=== PATIENT | female | born 1990 | race Caucasian/White ===

== ENCOUNTER 2021-04-22 07:00 | Outpatient (REF) | payer OTHER, SELFPAY ==
[2021-04-22 07:52] LABS: MANUAL DIFF FLAG NO
[2021-04-22 07:54] LABS: Basophils Percent Auto 0.3 % (0-2); Eosinophils Absolute Auto 0.1 X10*3/uL (0.0-0.4); Eosinophils Percent Auto 1.7 % (0-4); Hematocrit 42.4 % (37-47); Hemoglobin 14.8 g/dl (12.0-16.0); Imm Gran Abs Auto 0.01 X10*3/uL (0.00-0.03); Imm Gran Pct Auto 0.1 % (0.0-0.4); Lymphocytes Absolute Auto 2.5 X10*3/uL (1.2-4.9); Lymphocytes Percent Auto 34.5 % (20-40); Mean Corpuscular HGB Conc 34.9 g/dl (31.0-35.0); Mean Corpuscular Hemoglobin 31.6 pg (27.0-33.0); Mean Corpuscular Volume 90.6 fL (80-98); Mean Platelet Volume 9.4 fL (9.4-12.3); Monocytes Absolute Auto 0.5 X10*3/uL (0.1-1.2); Monocytes Percent Auto 7.1 % (2-11); Neutrophils Absolute Auto 4.1 X10*3/uL (2.0-8.3); Neutrophils Percent Auto 56.3 % (45-73); Platelet Count 238 X10*3/uL (160-400); Red Blood Count 4.68 X10*6/uL (4.20-5.50); Red Cell Distribution Width 12.1 % (11.0-16.0); White Blood Count 7.2 X10*3/uL (4.8-10.8)
[2021-04-22 08:21] LABS: Alanine Aminotransferase 18 U/L (0-31); Albumin Level 4.2 g/dL (3.5-5.0); Alkaline Phosphatase 71 U/L (39-117); Anion Gap 12 (12-20); Aspartate Amino Transferase 13 U/L (5-31); Bilirubin Total 0.6 mg/dL (0.0-1.0); Blood Urea Nitrogen 8 mg/dL (9-16); Carbon Dioxide 23 mmol/L (22-29); Chloride 110 mmol/L (96-108); Cholesterol 174 mg/dL; Estimated Glomerular Filt Rate > 60; Glucose Fasting 102 mg/dL (60-99); HDL Cholesterol 56 mg/dL; LDL Cholesterol Calculated 94 mg/dl; Potassium 3.9 mmol/L (3.3-5.1); Sodium 141 mmol/L (135-145); Total Protein 6.8 g/dL (6.5-8.0); Triglycerides 121 mg/dL
[2021-04-22 08:44] LABS: Thyroid Stimulating Hormone 1.94 uIU/mL (0.32-4.0); Vitamin D 25-OH Total 27.1 ng/mL (>30)
[2021-04-23 22:26] LABS: Thyroid Peroxidase Antibodies 1 IU/mL (<9)
== END 2021-04-22 07:01 | disposition home or self-care (01) ==
LOC: HO.LAB 07:00
PROVIDERS: PCP Internal Medicine; Visit Provider Internal Medicine
DX: Z00.00 Encounter for general adult medical examination without abnormal findings (principal); E55.9 Vitamin D deficiency, unspecified; E28.2 Polycystic ovarian syndrome; E04.9 Nontoxic goiter, unspecified; I45.6 Pre-excitation syndrome
CPT/HCPCS: 36415; 80053; 80061; 82306; 84439; 84443; 85025; 86376

== ENCOUNTER 2021-04-29 16:24 | Outpatient (REF) | payer OTHER, SELFPAY ==
--- NOTE | ~2021-04-29 | US_ITS ---
EXAMINATION: US THYROID CLINICAL INFORMATION: Enlarged thyroid. COMPARISON: None TECHNIQUE: Linear transducer grayscale and color Doppler examination with attention to the region of the thyroid. FINDINGS: SIZE: Measurements of the thyroid lobes and nodules are given in sagittal, anteroposterior and transverse dimensions respectively. The thyroid gland is normal in size. Right Thyroid Lobe: 3.7 x 1.3 x 1.6 cm, volume 4.0 mL. Parenchyma: The gland echotexture is homogeneous. Thyroid vascularity is normal. Left Thyroid Lobe: 3.9 x 1.2 x 1.2 cm, volume 3.0 mL. Parenchyma: The gland echotexture is homogeneous. Thyroid vascularity is normal. Isthmus: 0.3 cm in maximum AP dimension. No thyroid nodules are seen. No lymphadenopathy is seen in the tissue surrounding the thyroid gland. US/US thyroid IMPRESSION: Normal thyroid ultrasound.
== END 2021-04-29 16:25 | disposition home or self-care (01) ==
LOC: HO.US 16:24
PROVIDERS: PCP Internal Medicine; Visit Provider Internal Medicine
DX: E04.9 Nontoxic goiter, unspecified (principal)
CPT/HCPCS: 76536

== ENCOUNTER 2021-12-18 10:51 | Outpatient (REF) | payer OTHER, SELFPAY ==
[2021-12-18 13:59] LABS: Estimated Average Glucose 85 mg/dL; Hemoglobin A1c % 4.6 %
[2021-12-18 14:08] LABS: Anion Gap 13 (12-20); Blood Urea Nitrogen 8 mg/dL (9-16); Calcium 9.4 mg/dL (8.4-10.2); Carbon Dioxide 24 mmol/L (22-29); Chloride 107 mmol/L (96-108); Estimated Glomerular Filt Rate > 60; Glucose Random 93 mg/dL (60-115); Potassium 4.1 mmol/L (3.3-5.1); Sodium 140 mmol/L (135-145)
[2021-12-18 14:31] LABS: Free T4 (Free Thyroxine) 0.68 ng/dL (0.71-1.85); Thyroid Stimulating Hormone 1.01 uIU/mL (0.32-4.0); Vitamin D 25-OH Total 25.3 ng/mL (>30)
== END 2021-12-18 10:52 | disposition home or self-care (01) ==
LOC: HO.10HDL 10:51
PROVIDERS: Visit Provider Internal Medicine
DX: E28.2 Polycystic ovarian syndrome (principal); E55.9 Vitamin D deficiency, unspecified
CPT/HCPCS: 36415; 80048; 82306; 83036; 84439; 84443

== ENCOUNTER 2022-12-24 08:01 | Outpatient (REF) | payer OTHER, SELFPAY ==
[2022-12-24 10:55] LABS: MANUAL DIFF FLAG NO
[2022-12-24 11:02] LABS: Basophils Percent Auto 0.3 % (0-2); Eosinophils Absolute Auto 0.1 X10*3/uL (0.0-0.4); Eosinophils Percent Auto 1.6 % (0-4); Hematocrit 42.2 % (37.0-47.0); Hemoglobin 14.6 g/dl (12.0-16.0); Imm Gran Abs Auto 0.02 X10*3/uL (0.00-0.03); Imm Gran Pct Auto 0.3 % (0.0-0.4); Lymphocytes Absolute Auto 2.2 X10*3/uL (1.2-4.9); Lymphocytes Percent Auto 28.3 % (20-40); Mean Corpuscular HGB Conc 34.6 g/dl (31.0-35.0); Mean Corpuscular Volume 89.6 fL (80.0-98.0); Monocytes Absolute Auto 0.5 X10*3/uL (0.1-1.2); Monocytes Percent Auto 6.3 % (2-11); Neutrophils Absolute Auto 4.8 x10*3/uL (2.0-8.3); Neutrophils Percent Auto 63.2 % (45-73); Platelet Count 265 X10*3/uL (160-400); Red Blood Count 4.71 X10*6/uL (4.20-5.50); Red Cell Distribution Width 12.1 % (11.0-16.0); White Blood Count 7.6 X10*3/uL (4.8-10.8)
[2022-12-24 11:41] LABS: Alanine Aminotransferase 19 U/L (0-31); Albumin Level 3.9 g/dL (3.5-5.0); Alkaline Phosphatase 88 U/L (39-117); Anion Gap 14 (12-20); Aspartate Amino Transferase 14 U/L (5-31); Bilirubin Total 0.5 mg/dL (0.0-1.0); Blood Urea Nitrogen 11 mg/dL (9-16); Calcium 8.8 mg/dL (8.4-10.2); Carbon Dioxide 24 mmol/L (22-29); Chloride 107 mmol/L (96-108); Cholesterol 162 mg/dL; Estimated Glomerular Filt Rate > 60; Glucose Fasting 95 mg/dL (60-99); HDL Cholesterol 45 mg/dL; LDL Cholesterol Calculated 94 mg/dl; Potassium 4.1 mmol/L (3.3-5.1); Sodium 141 mmol/L (135-145); Total Protein 6.3 g/dL (6.5-8.0); Triglycerides 118 mg/dL
[2022-12-24 12:01] LABS: Thyroid Stimulating Hormone 1.07 uIU/mL (0.32-4.0)
== END 2022-12-24 08:02 | disposition home or self-care (01) ==
LOC: HO.10HDL 08:01
PROVIDERS: Visit Provider Internal Medicine
DX: Z00.00 Encounter for general adult medical examination without abnormal findings (principal)
CPT/HCPCS: 36415; 80053; 80061; 84439; 84443; 85025

== ENCOUNTER → 2023-01-04 07:51 | Outpatient (REF) | payer OTHER, SELFPAY ==
--- NOTE | 2023-01-04 07:55 | CA_ITS ---
Transthoracic Echocardiogram Patient (Last, First, Middle): Raquel Cameron, Gender: Female Date of : 1990 Age: 32 Procedure Date: 01/04/2023 Procedure Type: Transthoracic Echocardiogram Location: OP Height: 157.48 cm Weight: 107.5 kg BSA: 2.05 m2 Heart Rate: 75 bpm BP: 130 / 80 mmHg Take Out Waiter: JHONY Referring MD: Yoni Wade MD Youth Specialist: Raad Bernstein MD Symptoms: R00.2 PALPITATIONS I45.6 PRE EXCITEMENT SYNDROME Study Quality: Fair ECG Rhythm: Sinus Conclusions: - Essentially normal study Findings Left Ventricle Normal left ventricular size, thickness, and systolic function. The visually estimated ejection fraction is between 55-60%. Spectral Doppler is indicative of a normal filling pattern. Right Ventricle Normal right ventricular cavity size and systolic function. Atria Both atria are normal in size. Interatrial shunt cannot be excluded. Aortic Valve The aortic valve structure and function is likely normal. There is no aortic valve stenosis. There is no aortic valve regurgitation. Mitral Valve Likely normal mitral valve structure and function. There is no mitral valve regurgitation. There is no mitral valve stenosis. Pulmonic Valve The pulmonic valve was not well visualized. Tricuspid Valve Likely normal tricuspid valve structure and function. There is trace tricuspid valve regurgitation. The right ventricular systolic pressure is normal. Normal right atrial pressure. There is no evidence of pulmonary hypertension. Great Vessels All visible segments of the aorta are normal in size. The pulmonary artery was not well visualized. Venous The inferior vena cava is normal in size and collapses greater than 50% with inspiration. Pericardium/Pleural There is no evidence of pericardial effusion. Measurements 2D Linear Measurements IVSd: 1.15 0.6-0.9/0.6-1.0 cm LVIDd: 4.51 3.9-5.3/4.2-5.9 cm LVIDd Index: 2.20 2.4-3.2/2.2-3.1 cm/m2 LVIDs: 3.23 2.0-3.6 cm LVPWd: 1.01 0.7-1.1 cm LA Diam: 3.50 2.7-3.8/3.0-4.0 cm LAIDs Index: 1.71 1.5-2.3 cm/m2 LV Mass: 213.21 67-162/88-224 g LV Mass Index: 104.00 43-95/49-115 g/m2 LVOT Diam: 2.00 3.0+(-)1.3 cm 2D Systolic Function EF 4C: 54.40 >55% EF 2C: 61.30 >55% EF BiP: 58.90 >55% Mitral Valve MV Pk E: 0.80 MV PK A: 0.63 MV Decel Time: 181.00 E/A: 1.30 E'Lateral: 12.30 E'Medial: 8.16 E/E' Med: 9.80 E/E' Lat: 6.50 PHT: 53.00 MVA PHT: 4.15 Decel Ll[place]: 4.44 Aortic Valve AoV Pk Brent: 1.39 AoV Mn Brent: 1.02 AoV VTI: 0.27 AoV Pk Grad: 8.00 Aov Mn Grad: 5.00 CONNIE Cont.VTI: 2.70 LVOT LVOT Pk Brent: 1.17 LVOT Mn Brent: 0.87 LVOT VTI: 0.23 LVOT Pk Grad: 5.00 LVOT Mn Grad: 3.00 LVOT Diam: 2.00 LVOT Area: 3.14 Diastolic Function MV Pk E: 0.80 MV Pk A: 0.63 E/A: 1.30 E'Medial: 8.16 E/E' Med: 9.80 E' Laterial: 12.30 E/E' Lat: 6.50 Right Ventricle TAPSE (mm): 18.00 TVS' Brent: 10.70 Tricuspid Valve TR Pk Brent: 2.10 TR Pk Grad: 18.00 RA Press: 3.00 RVSP: 21.00 Great Vessels Aorta Sinus of Valsalva: 2.60 2.0-3.5 cm Ao Asc: 2.50 2.1-3.4 cm Pulmonary Valve PV Pk Brent: 1.22 Peak PV Grad: 6.00 Updated in Other Vendor System with Status of Final Raad Bernstein MD electronically signed on 01/04/2023 12:26:31 PM with status of Final
--- NOTE | 2023-01-04 07:59 | HM_ITS ---
Conclusion: 1. Patient was monitored for total period of 7 days 2. Baseline was normal sinus rhythm with average heart of 93 beats per minute 3. No significant pauses or bradycardia noted 4. Rare PACs with aberrancy as well as PVCs noted with total burden less than 0.1% 5. Patient activated the counter 26 times with most of the symptoms of fluttering correlating with isolated ectopy beats. Symptoms of shortness of breath correlated with sinus rhythm MTDD
== END ==
LOC: HO.CARD 07:51
PROVIDERS: Visit Provider Internal Medicine
DX: R00.2 Palpitations (principal); I45.0 Right fascicular block
CPT/HCPCS: 93242; 93306

== ENCOUNTER → 2023-01-07 15:50 | Outpatient (REF) | payer OTHER, SELFPAY | LOC: HO.SL 15:50 | PROVIDERS: PCP Internal Medicine; Visit Provider Internal Medicine | DX: G47.10 Hypersomnia, unspecified (principal) | CPT/HCPCS: 95806 ==

== ENCOUNTER 2024-08-10 07:56 | Outpatient (REF) | payer BC, SELFPAY ==
[2024-08-10 08:20] LABS: MANUAL DIFF FLAG NO
[2024-08-10 08:53] LABS: Basophils Percent Auto 0.3 % (0-2); Eosinophils Absolute Auto 0.1 X10*3/uL (0.0-0.4); Eosinophils Percent Auto 1.2 % (0-4); Hemoglobin 14.9 g/dl (12.0-16.0); Imm Gran Abs Auto 0.05 X10*3/uL (0.00-0.03); Imm Gran Pct Auto 0.7 % (0.0-0.4); Lymphocytes Absolute Auto 1.9 X10*3/uL (1.2-4.9); Lymphocytes Percent Auto 27.7 % (20-40); Mean Corpuscular HGB Conc 34.7 g/dl (31.0-35.0); Mean Corpuscular Hemoglobin 30.8 pg (27.0-33.0); Mean Platelet Volume 9.2 fL (9.4-12.3); Monocytes Absolute Auto 0.7 X10*3/uL (0.1-1.2); Monocytes Percent Auto 10.4 % (2-11); Neutrophils Absolute Auto 4.1 x10*3/uL (2.0-8.3); Neutrophils Percent Auto 59.7 % (45-73); Platelet Count 230 X10*3/uL (160-400); Red Blood Count 4.83 X10*6/uL (4.20-5.50); Red Cell Distribution Width 12.1 % (11.0-16.0); White Blood Count 6.9 X10*3/uL (4.8-10.8)
[2024-08-10 09:49] LABS: Alanine Aminotransferase 82 U/L (0-31); Albumin Level 4.1 g/dL (3.5-5.0); Alkaline Phosphatase 85 U/L (39-117); Anion Gap 12 (12-20); Aspartate Amino Transferase 46 U/L (5-31); Bilirubin Total 0.6 mg/dL (0.0-1.0); Blood Urea Nitrogen 7 mg/dL (9-16); Calcium 9.4 mg/dL (8.4-10.2); Carbon Dioxide 24 mmol/L (22-29); Chloride 108 mmol/L (96-108); Cholesterol 175 mg/dL (<200); Estimated Glomerular Filt Rate > 60; Glucose Fasting 105 mg/dL (60-99); HDL Cholesterol 46 mg/dL (>40); LDL Cholesterol Calculated 96 mg/dL (<100); Potassium 3.8 mmol/L (3.3-5.1); Sodium 140 mmol/L (135-145); Total Protein 6.9 g/dL (6.5-8.0); Triglycerides 165 mg/dL (<150)
[2024-08-10 09:56] LABS: Free T4 (Free Thyroxine) 0.74 ng/dL (0.71-1.85); Thyroid Stimulating Hormone 1.84 uIU/mL (0.32-4.0)
== END 2024-08-10 07:57 | disposition home or self-care (01) ==
LOC: HO.LAB 07:56
PROVIDERS: PCP Internal Medicine; Visit Provider Internal Medicine
DX: E03.9 Hypothyroidism, unspecified (principal); E28.2 Polycystic ovarian syndrome
CPT/HCPCS: 36415; 80053; 80061; 84439; 84443; 85025

== ENCOUNTER 2025-01-01 07:45 | Outpatient (REF) | payer BC, SELFPAY ==
--- NOTE | ~2025-01-01 | US_ITS ---
CLINICAL HISTORY: ELEVATED LIVER ENZYMES US abdomen complete Comparison: None Findings: The pancreatic head and body appear within normal limits. The pancreatic tail is obscured by overlying bowel gas. The aorta and inferior vena cava are normal caliber. The liver is normal in size with the right hepatic lobe measuring 16.3 cm in length. Hepatic echogenicity is increased. No focal hepatic mass is identified. There is no intrahepatic bile duct dilatation. The common duct is 3.5 mm in diameter. The gallbladder is normal. No gallstones are seen. There is no gallbladder wall thickening or pericholecystic fluid. The main portal vein is antegrade. The right kidney is 12.2 cm in length. The left kidney is 11.9 cm in length. The spleen is normal. IMPRESSION: 1. Hepatic steatosis. This document has been electronically signed by: Rico Dangelo on 01/02/2025 06:20:10
--- OUTSIDE RECORDS SUMMARY | 2025-01-01 07:59 | XMS_ITS | Encounter Summary ---
Author Organization [facility] Address [address] [place] [address] Care Team Providers Care Drift Miner Name Role Phone Unknown Primary Care Provider [phone] Encounter Details Date Type Department Care Team (Late st Contact Info) Description 09/05/2024 Scanned Document [address] [place] [id number] Provider, Generic Social History Tobacco Use Types Packs/Day Years Used Date Smoking Tobacco: Never Assessed Sex and Gender Information Value Date Recorded Sex Assigned at Not on file Gender Identity Not on file Sexual Orientation Not on file documented as of this encounter Plan of Treatment Not on file documented as of this encounter Visit Diagnoses Not on filedocumented in this encounter Care Teams Drift Miner Relationship Specialty Start Date End Date Unknown Unknow Provider Address PCP - General 11/12/22 documented as of this encounter
--- OUTSIDE RECORDS SUMMARY | 2025-01-01 07:59 | XMS_ITS | Encounter Summary ---
Author Organization [facility] Address [address] [place] [address] Care Team Providers Care Purse Seining Hand Name Role Phone Unknown Primary Care Provider [phone] Encounter Details Date Type Department Care Team (Late st Contact Info) Description 09/05/2024 Scanned Document [address] [place] [id number] Provider, Generic Social History Tobacco Use [...] on filedocumented in this encounter Care Teams Purse Seining Hand Relationship Specialty Start Date End Date Unknown Unknow Provider Address PCP - General 11/12/22 documented as of this encounter
--- OUTSIDE RECORDS SUMMARY | 2025-01-01 07:59 | XMS_ITS | Encounter Summary ---
Author Organization [facility] Address [address] [place] [id number] Care Team Providers Care Bench Carpenter Name Role Phone Unknown Primary Care Provider [phone] Reason for Visit * Reason Comments Other Dealing with cold si nce Wednesday felt better wed and today and yesterday felt back at [place] with feeling under the weather. Very congested , pressure lower half of face. Sinus concerns. Encounter Details Date Type Department Care Team (Late st Contact Info) Description 12/29/2024 8:30 AM EST Office Visit [facility] [place] [address] [place] [address] Vincent German MD [address] [place] [address] Lalo Lowery PA-C [address] [place] [address] Acute non-recurrent maxillary sinusitis (Primary Dx) Social History Tobacco Use Types Packs/Day Years Used Date Smoking Tobacco: Never Assessed Sex and Gender Information Value Date Recorded Sex Assigned at Not on file Gender Identity Not on file Sexual Orientation Not on file documented as of this encounter Last Filed Vital Signs Vital Sign Reading Time Taken Comments Blood Pressure 136/87 12/29/2024 8:42 AM EST Pulse 97 12/29/2024 8:42 AM EST Temperature 36.9 ??C (98.4 ??F) 12/29/2024 8:42 AM ES T Respiratory Rate 16 12/29/2024 8:42 AM EST Oxygen Saturation 98% 12/29/2024 8:42 AM EST Inhaled Oxygen Concentration - - Weight - - Height - - Body Mass Index - - documented in this encounter Progress Notes * Lalo Lowery PA-C - 12/29/2024 8:31 AM EST Impression There are no diagnoses linked to this encounter. Favor viral URI evolving to sinusitis Add Augmentin 875-125 mg p.o. twice daily for 7 days. PND and GERD triggers discussed. LS CTA, doubt PNA or bronchitis. Add tylenol to 500-1000mg PO q 6 hrs prn. MDD = 4000mg/day Or can try OTC ibuprofen 600mg PO q 6 hrs prn. Recommend OTC salt water gargle prn for post nasal drip relief. Can try OTC claritin every day prn for nasal congestion. Can try OTC flonase every day prn for nasal congestion. Can try OTC nasal saline spray prn for nasal congestion. Can try OTC mucinex or robitussin DM for mucus expellant. Maintain adequate hydration, at least 40oz daily. If unable to maintain PO fluid or solid intake, then go to ER. Strict precautions that if worsening, go to ER, otherwise recommend F/U with PCP. F/U with PCP in 1 week. If non improved, consider re-evaluation and/or possible CXR. HPI Chief Complaint: nasal congestion, sinus pain and pressure Location: body Duration: recent Context/mechanism: no trauma Severity: mild Pertinent History No IVDU No recent GI or procedure No significant trauma No history of TB No active cancer No recent lumbar puncture No use of blood thinners Pertinent ROS No fever No night sweats No chest pain No SOB No new focal extremity weakness No abdominal pain No vomiting or diarrhea No dysuria No bowel or bladder dysfunction No unremitting night pain worse than daily pain No skin infections No altered mental status Not immunocompromised Review of Systems I have reviewed the patient???s medications, allergies, past medical history, social history and family history as documented. No past medical history on file. No past surgical history on file. No family history on file. Objective Physical Exam Constitutional: General: She is not in acute distress. Appearance: Normal appearance. She is normal weight. She is not ill-appearing or toxic-appearing. HENT: Head: Normocephalic. Comments: No sinus tenderness Right Ear: Tympanic membrane, ear canal and external ear normal. Left Ear: Tympanic membrane, ear canal and external ear normal. Nose: Nose normal. Mouth/Throat: Mouth: Mucous membranes are moist. Eyes: Conjunctiva/sclera: Conjunctivae normal. Cardiovascular: Rate and Rhythm: Normal rate and regular rhythm. Pulses: Normal pulses. Heart sounds: Normal heart sounds. No murmur heard. Pulmonary: Effort: Pulmonary effort is normal. Breath sounds: Normal breath sounds. Abdominal: Palpations: Abdomen is soft. Tenderness: There is no abdominal tenderness. Musculoskeletal: Cervical back: Normal range of motion and neck supple. Skin: General: Skin is warm and dry. Neurological: Mental Status: She is alert and oriented to person, place, and time. There were no vitals filed for this visit. Vital signs reviewed. Constitutional: Well-appearing, in no apparent respiratory distress. Does not appear ill or toxic Eyes: Conjunctivae Clear; No Icterus Cardiovascular: Normal S1 and S2; no Murmur Respiratory: Clear Lung Sounds Abdomen: Soft, NT and No pulsatile mass Skin: No acute rashes Neurologic: No acute motor deficits MSK and Back Exam: Neg vertebral tenderness; + lateral tenderness; + lateral spasm; Straight leg raise test negative on right; Straight leg raise test negative on left; Reflexes normal ankle and knee bilaterally; EHL motor strength normal bilaterally; No saddle anesthesia; normal distal pulses Medical Decision Making The patient has signs and symptoms of mechanical back pain. Doubt AAA, aortic dissection, cord syndrome, kidney infection or injury, spine malignancy or infection, acute abdominal process, spine fracture. There are no acute neurological deficits. There are no high risk historical or objective findings to warrant MRI/CT today. Choose all that apply: The care plan including medications and self-management goals were reviewed to the best of the patient and/or family's ability. All questions and concerns were answered. Patient and/or family verbalized understanding of the plan of care. Results for orders placed or performed in visit on 04/12/23 Throat Culture (Group A, C and G Strep) Collection Time: 04/12/23 8:36 AM Specimen: Throat; Microbiology Result Value Ref Range Throat Culture SEE NOTE POCT Rapid Strep A Collection Time: 04/12/23 8:43 AM Result Value Ref Range Rapid Strep A Screen Negative Negative Lot Number 0 Cutter Hand Pass Pass Lalo Lowery PA-C FACEP 12/29/24 8:31 AM documented in this encounter Plan of Treatment Not on file documented as of this encounter Visit Diagnoses Diagnosis Acute non-recurrent maxillary sinusitis- Primary documented in this encounter Care Teams Bench Carpenter Relationship Specialty Start Date End Date Unknown Unknow Provider Address PCP - General 11/12/22 documented as of this encounter
--- OUTSIDE RECORDS SUMMARY | 2025-01-01 07:59 | XMS_ITS ---
Author Name [facility] Organization Unknown History of Medication Use Medication Directions Dispensed Refills Start Date End Date Stat fluticasone (FloNASE) 50 mcg/spray nasal spray 1 spray into each nostril daily. 11/16/2022 active amoxicillin (AMOXIL) 500 MG capsule Take 2 capsules (1,000 mg total) by mouth 3 (three) times a day. 09/05/2024 09/11/2024 active amoxicillin-clavula yusuf (AUGMENTIN) 875-125 MG per tablet Take 1 tablet by mouth 2 (two) times a day. 11/16/2022 09/05/2024 aborted fluconazole (diFLUcan) 150 MG tablet Take 1 tablet (150 mg total) by mouth every third day (72 hrs). 11/12/2022 09/10/2024 active Problems Problem Status Onset Date Problem Type Date of Resoluti on Source Acute non-recurrent maxillary sinusitis [facility]
--- OUTSIDE RECORDS SUMMARY | 2025-01-01 07:59 | XMS_ITS | Encounter Summary ---
Author Organization [facility] Address [address] [place] [id number] Care Team Providers Care Building Rigger Name Role Phone Unknown Primary Care Provider [phone] Encounter Details Date Type Department Care Team (Latest Contact Info) Description 12/29/2024 Travel Social History Tobacco Use Types Packs/Day Years Used Date Smoking Tobacco: Never Assessed Sex and Gender Information Value Date Recorded Sex Assigned at Not on file Gender Identity Not on file Sexual Orientation Not on file documented as of this encounter Plan of Treatment Not on file documented as of this encounter Visit Diagnoses Not on filedocumented in this encounter Care Teams Building Rigger Relationship Specialty Start Date End Date Unknown Unknow Provider Address PCP - General 11/12/22 documented as of this encounter
--- OUTSIDE RECORDS SUMMARY | 2025-01-01 07:59 | XMS_ITS | Clinical Summary ---
Author Organization [facility] Address [address] [place] [id number] Care Team Providers Care Freight Traffic Consultant Name Role Phone Unknown Primary Care Provider [phone] Allergies No known active allergies Medications Medication Sig Dispensed Refills Start Date End Date Status fluticasone (FloNASE) 50 mcg/spray nasal sprayIndications:Sin us pressure 1 spray into each nostril daily. 1 each 11/16/2022 Active trimethoprim-polymyx in b (POLYTRIM) ophthalmic solutionIndications: Acute bacterial conjunctivitis of both eyes Administer 1 drop to both eyes every 4 (four) hours. 10 mL 11/16/2022 Active albuterol (PROVENTIL HFA; VENTOLIN HFA) 108 (90 Base) MCG/ACT inhalerIndications:P neumonia of right lower lobe due to infectious organism Inhale 2 puffs 4 times daily (every 6 hours) as needed for wheezing. 8.5 g 09/05/2024 Active benzonatate (TESSALON) 200 MG capsuleIndications:P neumonia of right lower lobe due to infectious organism Take 1 capsule (200 mg total) by mouth 3 (three) times a day as needed for cough. 20 capsule 09/05/2024 Active fluconazole (diFLUcan) 150 MG tabletIndications:An tibiotic-induced yeast infection Take 1 tablet (150 mg total) by mouth every third day (72 hrs). 2 tablet 09/05/2024 Active amoxicillin-clavulan ate (AUGMENTIN) 875-125 MG per tabletIndications:Ac vi non-recurrent maxillary sinusitis Take 1 tablet by mouth 2 (two) times a day. 14 tablet 12/29/2024 01/05/2025 Active Active Problems No known active problems Encounters Date Type Department Care Team Description 12/29/2024 8:30 AM EST Office Visit [facility] [place] [address] [place] [address] Vincent German MD Tibbitts, Brandon L, DAREN Acute non-recurrent maxillary sinusitis (Primary Dx) 12/29/2024 Travel from Last 3 Months Social History Tobacco Use Types Packs/Day Years Used Date Smoking Tobacco: Never Assessed Sex and Gender Information Value Date Recorded Sex Assigned at Not on file Gender Identity Not on file Sexual Orientation Not on file Last Filed Vital Signs Vital Sign Reading Time Taken Comments Blood Pressure 136/87 12/29/2024 8:42 AM EST Pulse 97 12/29/2024 8:42 AM EST Temperature 36.9 ??C (98.4 ??F) 12/29/2024 8:42 AM ES T Respiratory Rate 16 12/29/2024 8:42 AM EST Oxygen Saturation 98% 12/29/2024 8:42 AM EST Inhaled Oxygen Concentration - - Weight 108 kg (239 lb) 11/12/2022 10:53 AM EST Height - - Body Mass Index - - Plan of Treatment Health Maintenance Due Date Last Done Comments Hepatitis C Virus Screening 1990 HIV Screening 2005 DTaP/Tdap/Td Vaccines (1 - Tdap) 2011 Hepatitis B Vaccines (1 of 3 - 19+ 3-dose series) 2011 Pap Smear (Ages 21-65) 2013 Influenza Vaccine 06/08/2024 COVID-19 Vaccine (2 - 2023-2 5 season) 2024 02/12/2021 HPV Vaccines Aged Out No longer eligi ble based on patient's age to complete this topic Pneumococcal Vaccine: Pediat bautista (0-5 Years) and At-Risk Patients (6 to 49 Years) Aged Out No longer eligible b ased on patient's age to complete this topic Care Teams Freight Traffic Consultant Relationship Specialty Start Date End Date Unknown Unknow Provider Address PCP - General 11/12/22
== END 2025-01-01 07:46 | disposition home or self-care (01) ==
LOC: HO.US 07:45
PROVIDERS: PCP Internal Medicine; Visit Provider Internal Medicine
DX: R74.01 Elevation of levels of liver transaminase levels (principal)
CPT/HCPCS: 76700

== ENCOUNTER → 2025-01-01 07:49 | Outpatient (BNV) | payer BC, SELFPAY | PROVIDERS: PCP Internal Medicine; Visit Provider Radiology Vascular & Interventional Radiology | DX: K76.0 Fatty (change of) liver, not elsewhere classified (principal) | CPT/HCPCS: 76700 ==